=== PATIENT | female | born 1950 | race Caucasian/White ===

== ENCOUNTER → 2023-12-13 09:44 | Outpatient (REF) | payer OTHER, SELFPAY | LOC: RAD 09:44 | PROVIDERS: ATTENDING PHYSICIAN Nurse Practitioner Family | DX: M79.89 Other specified soft tissue disorders (principal); R60.0 Localized edema | CPT/HCPCS: 93971 ==

== ENCOUNTER → 2023-12-20 10:50 | Outpatient (REF) | payer OTHER, SELFPAY | LOC: HWRAD 10:50 | PROVIDERS: ATTENDING PHYSICIAN Nurse Practitioner Family | DX: M85.80 Other specified disorders of bone density and structure, unspecified site (principal) | CPT/HCPCS: 77080 ==

== ENCOUNTER → 2024-02-05 10:43 | Outpatient (REF) | payer OTHER, SELFPAY | LOC: HWRAD 10:43 | PROVIDERS: ATTENDING PHYSICIAN Nurse Practitioner Family | DX: M54.50 Low back pain, unspecified (principal) | CPT/HCPCS: 72110 ==

== ENCOUNTER → 2024-03-31 11:18 | Outpatient (REF) | payer OTHER, SELFPAY | LOC: HWCARD 11:18 | PROVIDERS: ATTENDING PHYSICIAN Obstetrics & Gynecology; FAMILY PHYSICIAN Nurse Practitioner Family | DX: N39.3 Stress incontinence (female) (male) (principal); N81.11 Cystocele, midline | CPT/HCPCS: 93005 ==

== ENCOUNTER → 2024-05-14 09:21 | Outpatient (REF) | payer OTHER, SELFPAY ==
--- NOTE | 2024-05-14 13:03 | CARDSERVLU ---
Echocardiogram with [facility] completed after protocol screening completed. Allergies verified.
Patent IV site: __R antecube___
IV site flushed with 0.9% NaCl pre and post administration.
Diluted bolus method utilized to enhance visualization of ventricular bai.
Total volume given: ___4_ mL
Patient tolerated all procedures well without complications.
== END ==
LOC: HWRCS 09:21
PROVIDERS: ATTENDING PHYSICIAN Internal Medicine Cardiovascular Disease; FAMILY PHYSICIAN Nurse Practitioner Family
DX: R06.09 Other forms of dyspnea (principal); I44.4 Left anterior fascicular block
CPT/HCPCS: 93306

== ENCOUNTER 2024-08-11 23:55 | Inpatient (IN) | payer OTHER, SELFPAY ==
[2024-08-11 19:11] VITALS: BP 145/110
[2024-08-11 19:59] LABS: Lactic Acid 2.8 mmol/L (0.7-2.0)
[2024-08-11 20:01] LABS: % Basophils 0.4 % (0-2); % Eosinophils 1.4 % (0-6); % Immature Granulocytes 0.4 % (0-0.5); % Lymphocytes 13.1 % (20.5-51.1); % Monocytes 4.8 % (1.7-9.3); % Neutrophils 79.9 % (42.2-75.2); Absolute Basophils 0.1 10^3/uL (0-0.2); Absolute Eosinophils 0.2 10^3/uL (0-0.7); Absolute Immature Granulocytes 0.1 10^3/uL (0-0.05); Absolute Lymphocytes 2.1 10^3/uL (1.2-3.4); Absolute Monocytes 0.8 10^3/uL (0.1-0.6); Absolute Neutrophils 12.8 10^3/uL (1.4-6.5); Hematocrit 44.4 % (37.0-47.0); Hemoglobin 15.1 g/dL (12.0-16.0); Mean Corpuscular Hgb 30.9 pg (27.0-31.0); Mean Corpuscular Volume 90.8 fL (81.0-99.0); Mean Platelet Volume 10.4 fL (7.4-10.4); Nucleated Red Blood Cells % 0 %; Platelet Count 252 10^3/uL (130-400); Red Blood Cell Count 4.89 10^6/uL (4.20-5.40); Red Cell Dist. Width 13.8 % (11.5-14.5)
[2024-08-11 20:03] LABS: ALT (SGPT) 32 U/L (0-35); AST (SGOT) 27 U/L (14-36); Albumin 4.7 g/dl (3.5-5.0); Alkaline Phosphatase 102 U/L (38-126); Blood Urea Nitrogen 23 mg/dl (7-17); Calcium 9.6 mg/dl (8.4-10.2); Carbon Dioxide 26 mmol/L (22-30); Chloride 104 mmol/L (98-107); Glucose 163 mg/dl (70-99); Potassium 4.7 mmol/L (3.5-5.1); Sodium 139 mmol/L (135-145); Total Bilirubin 1.1 mg/dl (0.2-1.3); Total Protein 7.6 g/dl (6.3-8.2); eGFR 59.86
[2024-08-11] MEDS: MORPHINE SULFATE 4 MG IV ×3 (20:10→21:39)
[2024-08-11] MEDS: ZOFRAN 4 MG IV ×2 (20:10→23:17)
--- NOTE | 2024-08-11 20:17 | ED.GENMED ---
History of Present Illness
General
Chief Complaint: Flank Pain
Source: patient
Time Seen by Provider: 08/11/24 20:04
History of Present Illness
History of Present Illness:
74-year-old female presents to the emergency room complaining of flank pain on the right. Pain began suddenly about 3 PM. Patient states she was basically sitting when the pain started. The pain is severe. Patient had a 'bladder lift' surgery
performed in April. Since the surgery she has been having some bladder spasms. She has some difficulty starting her urinary stream. She has been taking an antispasmodic for this. Patient has not had a fever though she feels sweaty due to the
severity of the pain. She is nauseous and has retched because of the pain. No diarrhea or constipation.
Past History
Past History
ED Past Medical History: Hypercholesterolemia, Other and Other (Status post cholecystectomy hysterectomy breast reduction and , previous TIA)
ED Past Surgical History: Cholecystectomy and Gynecological
Social History
Tobacco: Non-smoker
Alcohol: None
Drug: None
Personal:
Living: with family
Family History
Family History: Other (Mother with CAD)
Phy Exam
Physical Exam
Physical Exam:
General: Awake, Alert, Oriented X3. Appears uncomfortable due to flank pain
Vitals: unremarkable
Head: Atraumatic
Eyes: Pupils equal, EOMI
Throat: Airway intact, no exudates
Neck: Trachea midline
Lungs: Clear and equal b/l
Heart: Regular rate, no murmurs
Abd: Soft, tenderness palpation right upper quadrant, No pulsatile mass
Back: Right CVA tenderness to percussion
Neuro: Nonfocal
Skin: Warm, dry, no rash
Extremities: pulses equal b/l, no edema
Course
Orders/Labs/Results
Orders:
Orders
08/11/24 19:29
Complete Blood Count/With Diff Urgent
Comprehensive Metabolic Panel Urgent
Lactic Acid Urgent
08/11/24 20:04
Morphine Sulfate 4 mg IV NOW STA
Ondansetron Injectable [Zofran] 4 mg IV NOW STA
08/11/24 20:16
0.9% Sodium Chloride 1000 ml [Nss] 1,000 ml IV BOLUS
Ketorolac [Toradol] 15 mg IV NOW STA
08/11/24 20:17
CT Abd/pel Without Iv Or Oral Urgent
Comment:
Reason For Exam: right flank pain
08/11/24 20:32
Urine Culture Reflexed from UA [Urinalysis Reflex To Culture] Urgent
Date Specimen was Collected: 08/11/24
Time Specimen was Collected: 19:15
Urine Microscopic Reflex Cult Urgent
Urine Culture Urgent
JOSE RAMON Source: U
Specimen Description:
Date Specimen was Collected: 08/11/24
Time Specimen was Collected: 19:15
08/11/24 20:43
Morphine Sulfate 4 mg IV NOW STA
08/11/24 21:20
Morphine Sulfate 4 mg IV NOW STA
08/11/24 23:01
HYDROmorphone [Dilaudid] 1 mg IV NOW STA
08/11/24 23:12
Ondansetron Injectable [Zofran] 4 mg .ROUTE .STK-MED ONE
08/11/24 23:16
Ondansetron Injectable [Zofran] 4 mg IV NOW STA
08/11/24 23:45
Admit/Transfer Patient As Directed
Co-Sign Provider:
Level of Care: Inpatient admission
Assign to:: Medical/Surgical
Physician / Group: Shane Valle
Diagnosis: right kidney stone
Reason for Hospitalization: right kidney stone
Expected length of stay greater than two midnights?: Yes
ELOS- Estimated Length of Stay in days: 2
I certify the patient meets the requirements for IP care: Yes
08/11/24 23:46
PRN Pain Medication Management As Directed
May give lesser potent ordered pain med per pt: Yes
preference::
Protocol:: Medication orders for pain may be administered in a
manner that supports deferring to patient preference
when the pt is:
- Requesting an ordered lesser potent pain medication.
Least to most potent pain medications are defined
as: acetaminophen < NSAID < tramadol < opioids
(morphine, oxycodone, hydromorphone).
- Requesting a lesser dose of the same medication IF
ORDERED.
- Requesting a less intrusive route of administration
if both routes are prescribed by the provider (PO <
IV).
08/11/24 23:48
Code Status As Directed
Resuscitation Status: Full Code
Abnormal Lab Results
08/11/24 08/11/24
19:29 20:32
WBC 16.0 H 10^3/uL
(4.8-10.8)
Abs Immat Gran (auto) 0.1 H 10^3/uL
(0-0.05)
Absolute Neuts (auto) 12.8 H 10^3/uL
(1.4-6.5)
Absolute Monos (auto) 0.8 H 10^3/uL
(0.1-0.6)
Neutrophils % 79.9 H %
(42.2-75.2)
Lymphocytes % 13.1 L %
(20.5-51.1)
BUN 23 H mg/dl
(7-17)
Glucose 163 H mg/dl
(70-99)
Lactic Acid 2.8 H mmol/L
(0.7-2.0)
Urine Ketones 2+ A
(Negative)
Ur Occult Blood Reflex 4+ A
(Negative)
Leukocyte Esterase Rfl 1+ A
(Negative)
Urine RBC 11-15 A /HPF
(0-2)
Urine WBC (Reflex) 11-15 A /HPF
(0-5)
Urine Bacteria (Reflex) Moderate A
(Negative)
Urine Albumin (Reflex) 2+ A
(Neg - Trace)
08/11/24 19:29
08/11/24 19:29
Vital Signs
Initial and Last Documented VS:
Initial Vital Signs
Temp Pulse Resp BP Pulse Ox
98.1 F 91 16 145/110 98
08/11/24 19:11 08/11/24 19:11 08/11/24 19:11 08/11/24 19:11 08/11/24 19:11
Last Documented Vital Signs
Temp Pulse Resp BP Pulse Ox
98.1 F 90 20 185/95 100
08/11/24 19:11 08/11/24 21:43 08/11/24 21:43 08/11/24 21:43 08/11/24 21:43
MDM/Problems Addressed
Differential Diagnosis Includes:
Kidney stone, pyelonephritis, diverticulitis
MDM/Problems Addressed:
Patient presents with severe right flank pain, urinary frequency. Workup here reveals no fever. White count elevated 16,000. BUN mildly elevated 23. Urinalysis shows moderate amount of RBCs and WBCs per high-power field that there is also a
large number of squamous epithelial cells. CT shows a 3 mm stone causing hydroureter and hydronephrosis with some perinephric stranding. Patient's pain was difficult to control requiring multiple doses of analgesia. Patient will require
hospitalization for pain control urologic evaluation in the morning
*Radiology
Radiology exam reviewed: radiology read reviewed
*Pulse Oximetry
Patient hypoxic: no
*Critical Care Note
Total Time (30-74mins, 75-104mins- exclusive of procedures): Not Applicable
ED Attending Note
-
Portions of this chart may have been created with voice recognition software.� Occasional wrong word or��sound alike� substitutions may have occurred due to the inherent limitations of voice recognition software.
Discharge Plan
Departure
Patient Disposition: Admit
Date of Disposition: 08/11/24
Time of Disposition: 23:17
Admit to: Med/Surg
Presentation/result/management discussed w/ accepting MD/DO: Hospitalist
Condition: Fair
Discharge Problem:
Kidney stone on right side
Interventions
Interventions:
*Risk Screen - Suicide Last Done: 08/11/24 19:11
*General Assessment Last Done: 08/11/24 19:11
*Neglect/Abuse Screening Last Done: 08/11/24 19:11
*ED COVID-19 Vaccine History Last Done: 08/11/24 19:11
PJ-Qailre-Ylnpvtfirt Assessment Last Done: 08/11/24 21:04
ED-Female Genitourinary Assessment Last Done: 08/11/24 21:04
[2024-08-11] MEDS: NSS 1000 IV (20:24)
[2024-08-11] MEDS: TORADOL 15 MG IV (20:24)
[2024-08-11 20:40] LABS: Urine Albumin 2+ (Neg - Trace); Urine Bilirubin Negative (Negative); Urine Character Clear (Clear); Urine Color Yellow; Urine Glucose Negative (Negative); Urine Ketone 2+ (Negative); Urine Leukocyte 1+ (Negative); Urine Nitrite Negative (Negative); Urine Occult Blood 4+ (Negative); Urine Urobilinogen Negative (Neg - 1+)
[2024-08-11 21:01] LABS: Urine Mucus Moderate; Urine Squamous Cell 16-20 /LPF (Few)
[2024-08-11 21:02] LABS: Urine Bacteria Moderate (Negative)
[2024-08-11 21:43] VITALS: BP 185/95
[2024-08-11] MEDS: DILAUDID 1 MG IV (23:17)
--- NOTE | 2024-08-11 23:19 | HPS.HSE ---
Addendum entered and electronically signed by Shane Valle MD 08/11/24 23:53:
I saw and examined the patient.
The BREAST PULLER or PA's note was reviewed and I agree with the note.
Comment:
74M HX HLD pw Rt flank intractable pain due to a 3mm right kidney stone. Afebrile, leucocytosis , hi LA abnormal UA . Hemodynamically stable. Presumed infected stone. UCX sent. Empiric IV CFTZ. NPO, IVF. Strain urine. IP MS. Urology consulted.
Original Note:
Family Physician
-
Family Physician: OLRNA Hannon
Chief Complaint
-
right flank pain
History of Present Illness
Patient is a 74-year-old female with past medical history significant for hyperlipidemia, anxiety who presented to [facility] ED for evaluation of right sided flank pain. Patient reports that she had acute onset of severe right sided flank
pain at approximately 1500 today. Patient states she has had associated nausea, heaving and diaphoresis with the severe pain. She denies any fever, chills, cough, shortness of breath, chest pain, vomiting, constipation, diarrhea or urinary symptoms.
Patient does report recent history of bladder lift in April 2024 with residual difficulty starting urine stream.
Medical History
Past Medical History
Past Medical History: Reports Other
Additional Past Medical History:
hyperlipidemia
anxiety
overactive bladder
Hx TIA
Hx skin cancer (squamous cell and basal cell)
Past Surgical History: Reports Other
Additional Past Surgical History:
abdominoplasty
breast reduction
x2
cholecystectomy
hysterectomy
anterior and posterior colporrhaphy and retropubic sling
Social History
Tobacco: Non-smoker
Alcohol: Occasional
Drug: None
Living: Alone
Employment: Retired
Family History
Family History: Not pertinent
Allergies / Home Medications
Allergies reflects when Allergies were last updated in [employer].
Home Medications with original date entered in [employer]
Allergy/Medication List:
Allergies
Allergy/AdvReac Type Severity Reaction Status Date / Time
cephalexin monohydrate Allergy Intermediate Unknown Verified 08/11/24 23:18
[From [email or web address]]
Home Medications
amoxicillin 500 mg capsule 500 mg PO TID 08/11/24
aspirin 81 mg chewable tablet 81 mg PO DAILY 08/11/24
atorvastatin 80 mg tablet 80 mg PO HS 08/11/24
clobetasol 0.05 % topical cream 1 applic topical DAILYPRN PRN vaginal region 08/11/24
estradiol 0.01% (0.1 mg/gram) vaginal cream 1 appful vaginal MOTH 08/11/24
hydroxyzine HCl 10 mg tablet 10 mg PO BID 08/11/24
sertraline 50 mg tablet 50 mg PO HSPRN PRN depression 08/11/24
therapeutic multivitamin 1 tab PO DAILY 08/11/24
zolpidem 5 mg tablet 5 mg PO HS 08/11/24
Review of Systems
-
History Source: Patient
Constitutional: Reports No Symptoms
EENT: Reports No Symptoms
Respiratory: Reports No Symptoms
Cardiac: Reports No Symptoms
Abdomen/GI: Reports Abdominal Pain, Nausea and Pain
: Reports Flank Pain and Difficulty Voiding
Musculoskeletal: Reports No Symptoms
Skin: Reports No Symptoms
Neurological: Reports No Symptoms
Endocrine: Reports No Symptoms
Hematologic/Lymphatic: Reports No Symptoms
Psych: Reports No Symptoms
Physical Exam
Vital Signs
Vital Signs
Temp Pulse Resp BP Pulse Ox
98.1 F 90 20 185/95 100
08/11/24 19:11 08/11/24 21:43 08/11/24 21:43 08/11/24 21:43 08/11/24 21:43
Physical Exam
General: Well Developed, Well Nourished, No Apparent Distress, Comfortable and Conversant
HEENT: NormoCephalic, Moist mucous membranes, Atraumatic, [place] Conjunctivae, Nose Appears Normal and Ears Appear Normal
Respiratory: Clear and Non Labored Respirations
Cardiac: S1/S2 and Regular Rhythm; No Murmur, Rub or Gallop
Breast: Deferred by me
GI: Soft, Non Distended and Normal Bowel Sounds; No Organomegaly
Rectal: Deferred by Provider
Genito-urinary: No costovertebral tender
Musculoskeletal: No Clubbing, No Cyanosis and No Edema
Skin: No Rash
Neuro: Awake, Alert, AO x 3 and Nonfocal/grossly intact
Psych: Calm and Intact Judgment/Insight
Laboratory Results
-
08/11/24 19:29
08/11/24 19:
Laboratory Results
Lactic Acid 2.8 mmol/L (0.7-2.0) H 08/11/24 19:29
Total Bilirubin 1.1 mg/dl (0.2-1.3) 08/11/24 19:
AST 27 U/L (14-36) 08/11/24 19:29
ALT 32 U/L (0-35) 08/11/24 19:29
Alkaline Phosphatase 102 U/L (38-126) 08/11/24 19:29
Data Reviewed
-
CT Scan: Report Reviewed by me (Abd/Pelvic: 3 mm obstructing right ureterovesical junction calculus. Moderate right ureteral and pelvicalyceal dilation as well as significant right perinephric edema. 1 mm calcification in the central left kidney,
which could represent a tiny nephrolith versus vascular calcification. No evidence f)
Lab Data: Labs Reviewed by me (WBC 16.0, Lactic 2.8, BUN 23, Creat 1.0, eGFR 59.86)
Impression/Plan
-
IMPRESSION/PLAN:
#kidney stone
Abd/Pelvic CT: 3 mm obstructing right ureterovesical junction calculus. Moderate right ureteral and pelvicalyceal dilation as well as significant right perinephric edema.
1 mm calcification in the central left kidney, which could represent a tiny nephrolith versus vascular calcification. No evidence for left ureteral calculus.
Mild diffuse fatty infiltration of the liver.
Colonic diverticula with no CT evidence for diverticulitis.
Bony degenerative changes as described.
WBC 16.0, BUN 23, Creat 1.0, Lactic 2.4
- admit to med/surg
- IV Ceftriaxone
- IVF
- supportive care
#hyperlipidemia
- continue atorvastatin
#anxiety
- continue hydroxyzine and sertraline
#overactive bladder
#Hx TIA
#Hx skin cancer (squamous cell and basal cell)
Code status: Full code
DVT Prophylaxis: SCDs
[2024-08-12] VITALS (15 sets, daily range): BP systolic 118–168; BP diastolic 58–85; BMI 35.2
--- NOTE | 2024-08-12 02:00 | PTCARENOTE ---
pt aaox3, reports abdominal pain 02/01. pt resting comfortably in bed. - see MAR re pain meds. pt placed on IVF. pt washed and chg wipes performed. oriented to room w/ call arora in reach.
[2024-08-12] MEDS: DILAUDID 0.5 MG IV ×3 (03:24→09:12)
[2024-08-12] MEDS: NSS 1000 IV ×2 (03:24→15:45)
[2024-08-12] MEDS: STERILE WATER FOR INJECTION 10 ML IV ×2 (03:54→15:46)
[2024-08-12] MEDS: ROCEPHIN 1000 MG IV ×2 (03:54→15:46)
[2024-08-12 06:27] LABS: Hematocrit 38.2 % (37.0-47.0); Hemoglobin 12.9 g/dL (12.0-16.0); Mean Corp Hgb Conc. 33.8 g/dL (33.0-37.0); Mean Corpuscular Hgb 30.7 pg (27.0-31.0); Mean Platelet Volume 10.9 fL (7.4-10.4); Platelet Count 207 10^3/uL (130-400); White Blood Cell Count 12.5 10^3/uL (4.8-10.8)
[2024-08-12 07:00] LABS: Blood Urea Nitrogen 24 mg/dl (7-17); Calcium 8.4 mg/dl (8.4-10.2); Carbon Dioxide 28 mmol/L (22-30); Chloride 105 mmol/L (98-107); Estimated Creatinine Clearance 40 ml/min; Glucose 127 mg/dl (70-99); Potassium 4.8 mmol/L (3.5-5.1); Sodium 140 mmol/L (135-145); eGFR 43.69
[2024-08-12] MEDS: THERAGRAN PO (09:14)
[2024-08-12] MEDS: LOW STRENGTH ASPIRIN 81 MG PO (09:18)
--- NOTE | 2024-08-12 09:25 | CONS.URO ---
Consultation
-
Reason for Consultation: Kidney stone
Medical History
History of Present Illness
74F with hx of midurethral sling/colporrhaphy with Dr. Luis 03/2024
Presenting with 4 days of urinary frequency/urgency and progressively worsening R flank pain
CT in the ER showed a 3mm R distal ureteral stone
Her pain was not able to be controlled with medications and she was admitted
Mild leukocytosis and likely contaminated UA specimen
She denies dysuria, fevers/chills, constitutional sx
Prior hx of kidney stones once around 2019 which she was able to pass
Past Medical History
Past Medical History: Other (hyperlipidemia anxiety overactive bladder Hx TIA Hx skin cancer (squamous cell and basal cell))
Past Surgical History: Other (abdominoplasty breast reduction x2 cholecystectomy hysterectomy anterior and posterior colporrhaphy and retropubic sling)
Social History
Tobacco: Non-smoker
Drug: None
Family History
Family History: Reviewed & Not Pertinent
Allergies/Home Medications
Allergies
Allergy/AdvReac Type Severity Reaction Status Date / Time
cephalexin monohydrate Allergy Intermediate Unknown Verified 08/11/24 23:18
[From [employer]]
Home Medications
�Medication �Instructions �Recorded �Confirmed �Type
amoxicillin 500 mg capsule 500 mg PO TID 08/11/24 08/11/24 History
aspirin 81 mg chewable tablet 81 mg PO DAILY 08/11/24 08/11/24 History
atorvastatin 80 mg tablet 80 mg PO HS 08/11/24 08/11/24 History
clobetasol 0.05 % topical cream 1 applic topical DAILYPRN PRN 08/11/24 08/11/24 History
vaginal region
estradiol 0.01% (0.1 mg/gram) 1 appful vaginal MOTH 08/11/24 08/11/24 History
vaginal cream
hydroxyzine HCl 10 mg tablet 10 mg PO BID 08/11/24 08/11/24 History
sertraline 50 mg tablet 50 mg PO HSPRN PRN depression 08/11/24 08/11/24 History
therapeutic multivitamin 1 tab PO DAILY 08/11/24 08/11/24 History
zolpidem 5 mg tablet 5 mg PO HS 08/11/24 08/11/24 History
Physical Exam
Vital Signs
Vital Signs
Temp Pulse Resp BP Pulse Ox
98.0 F 85 16 141/70 95
08/12/24 08:07 08/12/24 08:07 08/12/24 08:07 08/12/24 08:07 08/12/24 08:07
Lab / Testing Results
Laboratory Results
08/12/24 05:43
08/12/24 05:43
Physical Exam
General: Well Developed and Well Nourished
Respiratory: Clear and Non Labored Respirations
GI: Soft and Non Tender
Genito-urinary: Costovertebral Angle Tend
Neuro: AO x 3
Psych: Calm and Intact Judgement
Assessment / Plan
-
74F with intractable pain from 3mm R distal ureteral stone
Possible R forniceal rupture
Recent hx of midurethral sling/colporrhaphy with Dr. Luis 03/2024
- NPO for OR today - R ureteral stent, possible R ureteroscopy and laser lithotripsy
- Continue empiric antibiotics pending culture - Likely contaminated UA and symptoms don't suggest acute UTI
- Leukocytosis likely reactive to pain/obstruction, significantly decreased this AM
Data Reviewed
-
CT Scan: Image personally visualized and interpreted
Lab Data: Labs Reviewed
--- NOTE | 2024-08-12 10:28 | W.PN.HOSP.TC ---
Today's Communication/Plan
-
see outlined plan below
Assessment / Plan
Assessment / Plan
Assessment:
Obstructive uropathy from ureterolithiasis
Possible sepsis POA (leukocytosis, lactic acidosis, tachycardia)
- CT: 3 mm obstructing right ureterovesical junction calculus. Moderate right ureteral and pelvicaliceal dilation as well as significant right perinephric edema.
- UA abnormal. Await culture. Empiric Rocephin, day 1. continue IVF. Trend Lactates.
- Urology following; for R ureteral stent, possible R ureteroscopy and laser lithotripsy
- continue pain control
obstructive WESTON
- continue IVF
- trend BMP
HLD - statin
Anxiety - on Hydroxyzine and Sertraline
Hx of Overactive bladder
Hx of TIA
- on ASA/Statin
DVT ppx: SCDs
Code: Full
Anticipated Discharge: 24 - 48 hours
Subjective/Interval History
-
Date of Service: August 12, 2024
reports R flank pain, requesting further meds
no nausea/vomiting
no fever/chills
for OR today
Objective Data
-
Labs:
Laboratory Results
08/12/24
05:43
WBC 12.5 H
Hgb 12.9
Hct 38.2
Plt Count 207
Sodium 140
Potassium 4.8
Chloride 105
Carbon Dioxide 28
BUN 24 H
Creatinine 1.3 H
Glucose 127 H
Calcium 8.4
Vital Signs:
Vital Signs
Temp Pulse Resp BP Pulse Ox
98.0 F 85 16 141/70 95
08/12/24 08:07 08/12/24 08:07 08/12/24 08:07 08/12/24 08:07 08/12/24 08:07
I&O
08/11/24 08/12/24 08/13/24
06:59 06:59 06:59
Intake Total 430 / 430
Output Total 150 / 150
Balance 280 / 280
Physical Exam
-
General: Well Developed, Well Nourished and Pain
HEENT: Normocephalic and Atraumatic
Respiratory: Clear to Auscultation; Negative Wheezes
Cardiac: Regular Rhythm and S1/S2
GI: Soft
Genito-urinary: Costovertebral Angle Tend (R)
Musculoskeletal: No Edema
Neuro: AO x 3
Hematologic / Lymphatic: No Lymphadenopathy
Psych: Calm
Data Reviewed
-
Total Time Spent with Patient (in minutes): 42
Labs: Labs Reviewed by me
[2024-08-12] MEDS: ATARAX PO (11:00)
--- NOTE | 2024-08-12 11:16 | CM ---
Addendum entered by Pau Castro 08/12/24 16:50:
Patient for OR today.
Original Note:
Patient seen bedside.
IA completed.
patient lives alone in a 2 story townhouse.
Patient independent prior to admission without assistive devices.
patient drives.
no hx VN or skilled rehab.
PCP: Dr Friedman
Pharmacy: [facility]
Plan: home no needs anticipated.
--- NOTE | 2024-08-12 13:28 | W.IMMPOSTOP ---
Surgical Immed Post Op Note
-
Primary Surgeon: Annette
Assisting Surgeon: None
Pre-op Diagnosis: right ureteral stone with intractable rnal colic
Post-op Diagnosis: same
Procedure Performed: right ureteroscopic laser lithotripsy with stone extraction and JJ stent placement
Anesthesia Type: GET
Specimen / Cultures: right ureteral stone
Estimated Blood Loss: none
Complications: one
--- NOTE | 2024-08-12 15:03 | PTCARENOTE ---
Patient admitted from PACU post right ureteroscopy with lithotripsy and stent placement.The patient is still very sleepy but arousable.Vital signs are stable.The patient is in her bed with the call arora in reach.
[2024-08-12] MEDS: LIPITOR 80 MG PO (21:14)
[2024-08-12] MEDS: AMBIEN 5 MG PO (21:14)
[2024-08-12] MEDS: ATARAX 10 MG PO (21:15)
[2024-08-13] MEDS: NSS IV ×2 (01:01→11:21)
--- NOTE | 2024-08-13 02:50 | DOWNTIME ---
There was a [employer] Client Therapy Teacher Downtime on 08/13/2024 from 0100 to 08/13/2023 at 0235 . Downtime documentation of patient's care, including medication administrations, has been reconciled in the electronic record per guidelines. Refer to the
patient's paper chart under the miscellaneous tab to see printed paper medication records and downtime forms.
[2024-08-13 03:12] VITALS: BP 114/64
[2024-08-13 06:24] LABS: Hematocrit 34.6 % (37.0-47.0); Hemoglobin 11.7 g/dL (12.0-16.0); Mean Corp Hgb Conc. 33.8 g/dL (33.0-37.0); Mean Corpuscular Hgb 31.2 pg (27.0-31.0); Mean Corpuscular Volume 92.3 fL (81.0-99.0); Mean Platelet Volume 11.3 fL (7.4-10.4); Platelet Count 170 10^3/uL (130-400); Red Blood Cell Count 3.75 10^6/uL (4.20-5.40); White Blood Cell Count 10.1 10^3/uL (4.8-10.8)
[2024-08-13 07:03] LABS: Blood Urea Nitrogen 21 mg/dl (7-17); Calcium 8.3 mg/dl (8.4-10.2); Carbon Dioxide 26 mmol/L (22-30); Chloride 108 mmol/L (98-107); Estimated Creatinine Clearance 65 ml/min; Glucose 128 mg/dl (70-99); Potassium 4.6 mmol/L (3.5-5.1); Sodium 139 mmol/L (135-145); eGFR > 60.00
[2024-08-13 07:04] VITALS: BP 111/51
--- NOTE | 2024-08-13 09:11 | W.PN.SURGUPD ---
Surgical Update
Surgical Update
Stable 1 day s/p right ureteroscopy with removal of right ureteral stone and JJ stent placement
Voiding volitionally with expected urgency
No gross hematuria
No fever this morning
---
Cleared for discharge from standpoint
[2024-08-13] MEDS: ATARAX 10 MG PO (09:23)
[2024-08-13] MEDS: LOW STRENGTH ASPIRIN 81 MG PO (09:23)
[2024-08-13] MEDS: THERAGRAN 1 TABLET PO (09:23)
[2024-08-13 11:10] VITALS: BP 105/71
--- NOTE | 2024-08-13 11:19 | W.PN.HOSP.TC ---
Today's Communication/Plan
-
dc to home today
Assessment / Plan
Assessment / Plan
Assessment:
Obstructive uropathy from ureterolithiasis
Possible sepsis POA (leukocytosis, lactic acidosis, tachycardia)
- CT: 3 mm obstructing right ureterovesical junction calculus. Moderate right ureteral and pelvicaliceal dilation as well as significant right perinephric edema.
- s/p right ureteroscopy with removal of right ureteral stone and JJ stent placement 08/12
- urine culture no growth; will finish 5 day total Abx course
- OP Urology f/u in 2 weeks for stent removal
obstructive WESTON
- resolved with IVF
- trend BMP
HLD - statin
Anxiety - on Hydroxyzine and Sertraline
Hx of Overactive bladder
Hx of TIA
- on ASA/Statin
DVT ppx: SCDs
Code: Full
More than 30 minutes spent in discharge including
Final examination of the patient
Summarizing hospital stay
Instructions for continuing care to all relevant caregivers
Preparation of discharge records, prescriptions, and referral forms
Total time spent (in minutes): 41
Anticipated Discharge: Today
Subjective/Interval History
-
Date of Service: August 13, 2024
feels well no complaints
Objective Data
-
Labs:
Laboratory Results
08/13/24
04:50
WBC 10.1
Hgb 11.7 L
Hct 34.6 L
Plt Count 170
Sodium 139
Potassium 4.6
Chloride 108 H
Carbon Dioxide 26
BUN 21 H
Creatinine 0.8
Glucose 128 H
Calcium 8.3 L
Vital Signs:
Vital Signs
Temp Pulse Resp BP Pulse Ox
97.9 F 76 16 111/51 93
08/13/24 07:04 08/13/24 07:04 08/13/24 07:04 08/13/24 07:04 08/13/24 07:04
I&O
08/12/24 08/13/24 08/14/24
06:59 06:59 06:59
Intake Total 430 / 430 1290 / 1290
Output Total 150 / 150 200 / 200
Balance 280 / 280 1090 / 1090
Physical Exam
-
General: No Apparent Distress
HEENT: Normocephalic and Atraumatic
Respiratory: Clear to Auscultation; Negative Wheezes or Rales
Cardiac: Regular Rhythm and S1/S2
GI: Soft and Nontender
Genito-urinary: No Costovertebral Tender
Musculoskeletal: No Edema
Neuro: AO x 3
Hematologic / Lymphatic: No Lymphadenopathy
Psych: Calm
Data Reviewed
-
Total Time Spent with Patient (in minutes): 41
Labs: Labs Reviewed by me
--- NOTE | 2024-08-13 11:24 | W.DS.TRANS ---
DC Summary - French Drawer
-
Discharge Instructions:
Discharge Diagnosis/Procedures Obstructive uropathy from ureterolithiasis s/p
right ureteroscopy with removal of right
ureteral stone and JJ stent placement 08/12
Diet Regular
Activity As tolerated
Bathing Restrictions None
Instructions:
Stand-Alone Forms:
Changes to Home Medications: No
Discharge Medications:
DC Medications w/original date entered in [employer]
aspirin 81 mg chewable tablet 81 mg PO DAILY 08/11/24
atorvastatin 80 mg tablet 80 mg PO HS 08/11/24
clobetasol 0.05 % topical cream 1 applic topical DAILYPRN PRN vaginal region 08/11/24
estradiol 0.01% (0.1 mg/gram) vaginal cream 1 appful vaginal MOTH 08/11/24
hydroxyzine HCl 10 mg tablet 10 mg PO BID 08/11/24
sertraline 50 mg tablet 50 mg PO HSPRN PRN depression 08/11/24
therapeutic multivitamin 1 tab PO DAILY 08/11/24
zolpidem 5 mg tablet 5 mg PO HS 08/11/24
acetaminophen 325 mg tablet 650 mg (2 x 325 mg) PO Q4HPRN PRN mild pain/ARAGON/temp> 100.4F #30 tabs 08/13/24
cefdinir 300 mg capsule 300 mg PO BID #6 caps 08/13/24
phenazopyridine 100 mg tablet (Pyridium) 100 mg PO TID PRN Pain #20 tabs 08/13/24
Home Medication Changes
Pending Results: No
Total time spent discharging patient (in min): 41
--- NOTE | 2024-08-13 11:53 | CM ---
Met with pt at bedside
Pt for discharge today
Daughter to transport home
Given IMM
Plan - home no needs
== END 2024-08-13 13:25 | disposition home or self-care (01) | DRG 854 ==
LOC: 2 SOUTH 23:55
PROVIDERS: Emergency Medicine; Nurse Practitioner Family; Specialist; ADMITTING PHYSICIAN Internal Medicine; ATTENDING PHYSICIAN Internal Medicine; CONSULT PHYSICIAN Urology; EMERGENCY PHYSICIAN Emergency Medicine; FAMILY PHYSICIAN Nurse Practitioner Family
PROC: 0T768DZ Dilation of Right Ureter with Intraluminal Device, Via Natural or Artificial Opening Endoscopic (ICD-10-PCS; 2024-08-12)
PROC: 0TC68ZZ Extirpation of Matter from Right Ureter, Via Natural or Artificial Opening Endoscopic (ICD-10-PCS; 2024-08-12)
DX: A41.9 Sepsis, unspecified organism (principal); N13.2 Hydronephrosis with renal and ureteral calculous obstruction; N17.9 Acute kidney failure, unspecified; N32.89 Other specified disorders of bladder; R35.0 Frequency of micturition; K76.0 Fatty (change of) liver, not elsewhere classified; K57.30 Diverticulosis of large intestine without perforation or abscess without bleeding; N32.81 Overactive bladder; F41.9 Anxiety disorder, unspecified; E78.49 Other hyperlipidemia; D72.829 Elevated white blood cell count, unspecified; E78.00 Pure hypercholesterolemia, unspecified; R11.0 Nausea; Z60.2 Problems related to living alone; Z82.49 Family history of ischemic heart disease and other diseases of the circulatory system; Z86.73 Personal history of transient ischemic attack (TIA), and cerebral infarction without residual deficits; Z90.49 Acquired absence of other specified parts of digestive tract; Z90.710 Acquired absence of both cervix and uterus; Z85.828 Personal history of other malignant neoplasm of skin; Z88.1 Allergy status to other antibiotic agents; Z79.82 Long term (current) use of aspirin; Z87.442 Personal history of urinary calculi
CPT/HCPCS: 74018; 74176; 76000; 80048; 80053; 81003; 81015; 82365; 83605; 85025; 85027; 87086; 96361; 96374; 96375; 96376; 99285; C2617

== ENCOUNTER → 2024-09-16 11:05 | Outpatient (REF) | payer OTHER, SELFPAY | LOC: HWRAD 11:05 | PROVIDERS: ATTENDING PHYSICIAN Nurse Practitioner Family | DX: M79.601 Pain in right arm (principal) | CPT/HCPCS: 72050; 73030 ==

== ENCOUNTER → 2024-11-09 11:20 | Outpatient (REF) | payer OTHER, SELFPAY | LOC: PAVMRI 11:20 | PROVIDERS: ATTENDING PHYSICIAN Specialist; FAMILY PHYSICIAN Nurse Practitioner Family | DX: M25.511 Pain in right shoulder (principal) | CPT/HCPCS: 73221 ==

== ENCOUNTER → 2025-02-17 10:37 | Outpatient (REF) | payer OTHER, SELFPAY | LOC: PAVMRI 10:37 | PROVIDERS: ATTENDING PHYSICIAN Nurse Practitioner Family | DX: H93.A9 Pulsatile tinnitus, unspecified ear (principal) | CPT/HCPCS: 70546; 70549; 70553; A9585 ==

== ENCOUNTER → 2025-02-19 06:41 | Outpatient (REF) | payer OTHER, SELFPAY | LOC: MRI 06:41 | PROVIDERS: ATTENDING PHYSICIAN Physician Assistant; FAMILY PHYSICIAN Nurse Practitioner Family | DX: M54.16 Radiculopathy, lumbar region (principal) | CPT/HCPCS: 72148 ==